=== PATIENT | male | born 1995 | race Caucasian/White ===

== ENCOUNTER 2017-04-03 11:42 | Emergency (ER) | payer MEDICAID ==
[~2017-04-03] VITALS: Ht 180.3 cm; Wt 60.8 kg
--- NOTE | 2017-04-03 11:43 | NUR ---
Patient to ER bed [facility]1 to gown for evaluation. Side rails up. Report given to Masha WOLFE
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
[2017-04-03 11:53] VITALS: BP_SYST 119
--- NOTE | 2017-04-03 12:10 | NUR ---
Dr Rowland at bedside examining patient
--- NOTE | 2017-04-03 12:35 | NUR ---
Patient given written and verbal discharge instructions and verbalizes understanding. ER MD discussed with patient the results and treatment provided. Patient in stable condition. ID arm band removed. No prescriptions given. Patient educated on pain management and to follow up with PMD. Pain Scale [employer] for questions provided and answered.
[2017-04-03 12:36] VITALS: BP_SYST 119
== END 2017-04-03 12:35 ==
LOC: SED 11:42
DX: Z02.89 Encounter for other administrative examinations (principal); M54.5 Low back pain
CPT/HCPCS: 99283